=== PATIENT | female | born 1945 | race Caucasian/White ===

== ENCOUNTER → 2023-10-12 15:07 | Outpatient (REF) | payer MEDICARE, OTHER, SELFPAY | LOC: RAD 15:07 | PROVIDERS: ATTENDING PHYSICIAN Thoracic Surgery (Cardiothoracic Vascular Surgery) | DX: R07.89 Other chest pain (principal) | CPT/HCPCS: 71046 ==

== ENCOUNTER 2024-04-07 13:42 | Outpatient (RCR) | payer MEDICARE, OTHER, SELFPAY ==
[2024-04-04 14:50] LABS: Glucose - Point of Care 110 mg/dl (70-99)
[2024-04-04 15:38] LABS: Glucose - Point of Care 88 mg/dl (70-99)
[2024-04-07 13:24] LABS: Glucose - Point of Care 120 mg/dl (70-99)
[2024-04-07 14:05] LABS: Glucose - Point of Care 92 mg/dl (70-99)
== END 2024-04-07 23:59 | disposition home or self-care (01) ==
LOC: CRHB 13:42
PROVIDERS: ATTENDING PHYSICIAN Internal Medicine Clinical Cardiac Electrophysiology; FAMILY PHYSICIAN Family Medicine
DX: I25.10 Atherosclerotic heart disease of native coronary artery without angina pectoris (principal); Z95.1 Presence of aortocoronary bypass graft
CPT/HCPCS: 82962; G0422; G0423

== ENCOUNTER 2024-05-05 13:45 | Outpatient (RCR) | payer MEDICARE, OTHER, SELFPAY | END 2024-05-05 23:59 | disposition home or self-care (01) | LOC: CRHB 13:45 | PROVIDERS: ATTENDING PHYSICIAN Internal Medicine Clinical Cardiac Electrophysiology; FAMILY PHYSICIAN Family Medicine | DX: I25.10 Atherosclerotic heart disease of native coronary artery without angina pectoris (principal); Z95.1 Presence of aortocoronary bypass graft | CPT/HCPCS: G0422; G0423 ==

== ENCOUNTER 2024-05-12 14:03 | Outpatient (RCR) | payer MEDICARE, OTHER, SELFPAY ==
[2024-05-12 13:15] LABS: Glucose - Point of Care 113 mg/dl (70-99)
[2024-05-12 13:57] LABS: Glucose - Point of Care 101 mg/dl (70-99)
== END 2024-05-12 23:59 | disposition home or self-care (01) ==
LOC: CRHB 14:03
PROVIDERS: ATTENDING PHYSICIAN Internal Medicine Clinical Cardiac Electrophysiology
DX: I25.10 Atherosclerotic heart disease of native coronary artery without angina pectoris (principal); Z95.1 Presence of aortocoronary bypass graft
CPT/HCPCS: 82962; G0422